=== PATIENT | female | born 1955 | race Caucasian/White ===

== ENCOUNTER 2017-03-20 10:43 | Emergency (ER) | payer OTHER ==
[~2017-03-20] VITALS: Ht 167.6 cm; Wt 88.9 kg
[~2017-03-20 10:43] MED LIST: ATIVAN0.5 M1 PO; LAC PO; LEVAQUIN750 MG PO; METOPROLOL TART25 M1 PO; PAXIL10 MG PO; PRI20 PO; ZES5 PO; ZOC10 PO
[2017-03-20 11:50] LABS: CARBON DIOXIDE 25.2 mmol/L (21-32)
[2017-03-20 11:56] LABS: BASOPHIL % 0.3 % (0-2); PLATELET COUNT 201 x10^3mcL (130-400); RED CELL DISTRIBUTION WIDTH 13.4 % (11.5-14.5)
[2017-03-20 12:01] LABS: microscopic required? YES; urine erythrocyte TRACE (NEGATIVE)
[2017-03-20 12:15] LABS: ALBUMIN 3.7 g/dL (3.4-5.0); BILIRUBIN TOTAL 0.36 mg/dL (0.20-1.00); MAGNESIUM 2.2 mg/dL (1.8-2.4); TOTAL PROTEIN, SERUM 7.1 g/dL (6.4-8.2)
[2017-03-20 13:46] VITALS: BP 151/87
== END 2017-03-20 13:46 | disposition home or self-care (01) ==
LOC: ED 10:43
PROVIDERS: Emergency Medicine
DX: G51.0 Bell's palsy (principal); R07.9 Chest pain, unspecified; I10 Essential (primary) hypertension
CPT/HCPCS: 36415; 83880; Q0092

== ENCOUNTER 2018-06-21 11:02 | Emergency (ER) | payer OTHER ==
[~2018-06-21] VITALS: Ht 165.1 cm; Wt 87.1 kg
[2018-06-21 11:18] VITALS: Ht 165.1 cm; Wt 87.1 kg
[2018-06-21 13:03] VITALS: BP 121/73
== END 2018-06-21 13:03 | disposition home or self-care (01) ==
LOC: ED 11:02
DX: S13.4XXA Sprain of ligaments of cervical spine, initial encounter (principal); I10 Essential (primary) hypertension; W18.30XA Fall on same level, unspecified, initial encounter; Y93.89 Activity, other specified; Y92.89 Other specified places as the place of occurrence of the external cause; Y99.8 Other external cause status
CPT/HCPCS: 90715

== ENCOUNTER 2018-11-10 17:40 | Emergency (ER) | payer OTHER ==
[~2018-11-10] VITALS: Ht 167.6 cm; Wt 83.5 kg
[2018-11-10 17:50] VITALS: Ht 167.6 cm; Wt 83.5 kg
[2018-11-10 19:53] VITALS: BP 130/78
== END 2018-11-10 19:53 | disposition home or self-care (01) ==
LOC: ED 17:40
DX: S93.601A Unspecified sprain of right foot, initial encounter (principal); I10 Essential (primary) hypertension; Z90.49 Acquired absence of other specified parts of digestive tract; Z90.710 Acquired absence of both cervix and uterus; W20.8XXA Other cause of strike by thrown, projected or falling object, initial encounter; Y93.89 Activity, other specified; Y92.89 Other specified places as the place of occurrence of the external cause; Y99.8 Other external cause status
CPT/HCPCS: J1885